=== PATIENT | male | born 1950 | race Caucasian/White ===

== ENCOUNTER 2022-08-08 13:12 | Outpatient (CLI) | payer BC ==
[2022-08-08 14:15] LABS: Hemoglobin 14.3 g/dL (13.5-17.5); Mean Corpuscular HGB CONC 33.2 g/dL (32.0-36.0); Mean Corpuscular Hemoglobin 29.8 pg (27.0-33.0); Mean Corpuscular Volume 89.8 fl (81.2-95.1); Mean Platelet Volume 9.9 fl (7.4-10.4); Platelet Count 164 10x3/uL (150-450); RBC Distribution Width 15.9 % (11.5-14.5); White Blood Cell (WBC) Count 8.1 10x3/uL (3.5-10.5)
[2022-08-08 14:40] LABS: PTT 27.4 sec (22.0-33.0); Prothrombin Time 10.7 sec (9.5-12.1)
[2022-08-08 14:41] LABS: Anion Gap 13 mmol/L (10-20); BUN (Urea Nitrogen) 22 mg/dL (8.4-25.7); Calc. Creatinine Clearance 0 mL/min (70-130); Calcium 9.5 mg/dL (7.8-10.44); Carbon Dioxide 26 mmol/L (23-31); Chloride 106 mmol/L (98-107); Estimated GFR 96; Glucose 71 mg/dL (83-110); Sodium 141 mmol/L (136-145)
== END 2022-08-08 13:13 | disposition home or self-care (01) ==
LOC: CSHLAB 13:12
PROVIDERS: ATTEND Specialist
DX: Z01.818 Encounter for other preprocedural examination (principal); T81.30XA Disruption of wound, unspecified, initial encounter
CPT/HCPCS: 80048; 85027; 85610; 85730; 93005; 93010

== ENCOUNTER 2022-08-09 06:41 | Day surgery (SDC) | payer BC, MEDICARE ==
[2022-08-09] MEDS ORDERED: Gentamicin 80 MG/2 ML VIAL ONE (07:28)
[2022-08-09] MEDS ORDERED: Lidocaine 1% (PF) 30 ML VIAL ONE (07:28)
[2022-08-09] MEDS ORDERED: Sodium Chloride 0.9% 2,000 ML ONE (07:29)
[2022-08-09] MEDS ORDERED: Midazolam HCl 2 mg/2 ml Vial ONE ×2 (07:30→08:26)
[2022-08-09] MEDS ORDERED: Fentanyl 100 MCG/2 ML VIAL ONE (07:30)
[2022-08-09] MEDS ORDERED: Vancomycin HCl 500 MG VIAL ONE (07:35)
[2022-08-09] MEDS ORDERED: Zolpidem Tartrate 5 MG TAB PO PRN (08:55)
[2022-08-09] MEDS ORDERED: HYDROcodone/Acetaminophen 5/325 mg Tablet PO PRN ×2 (08:55)
[2022-08-09] MEDS ORDERED: Senokot S 8.6-50 MG TAB PO PRN (08:55)
[2022-08-09] MEDS ORDERED: Ondansetron ODT 4 MG TAB PO PRN (08:55)
[2022-08-09] MEDS ORDERED: Calcium Carbonate 500 MG ChewTAB PO PRN (08:55)
[2022-08-09] MEDS ORDERED: Loperamide HCl 2 MG CAP PO PRN (08:55)
[2022-08-09 09:14] VITALS: BMI 20.5
[2022-08-09] MEDS ORDERED: Meloxicam 7.5 MG TAB PO SCH (10:00)
[2022-08-09 11:47] VITALS: TEMP 98.6
[2022-08-09] MEDS: Vancomycin HCl 500 MG in Sodium Chloride 0.9% 100 ML IVPB SCH (20:13)
[2022-08-09 20:14] VITALS: BP 134/75
[2022-08-09] MEDS ORDERED: Amlodipine 5 MG TAB PO SCH (21:00)
[2022-08-09] MEDS ORDERED: CO Q-10 CAPSULE 50 MG PO SCH (21:00)
[2022-08-10 03:57] LABS: #Basophils 0.1 10x3/uL (0.0-0.2); #Eosinphils 0.2 10x3/uL (0.0-0.5); #Monocytes 0.6 10x3/uL (0.0-1.1); #Neutrophils 6.2 10x3/uL (1.5-8.4); %Basophils 0.9 % (0.0-2.0); %Eosinophils 2.1 % (0.0-6.0); %Lymphocytes 16.6 % (18.0-47.0); %Monocytes 7.4 % (0.0-10.0); %Neutrophils 72.6 % (40.0-75.0); Hemoglobin 13.1 g/dL (13.5-17.5); Mean Corpuscular HGB CONC 33.2 g/dL (32.0-36.0); Mean Corpuscular Hemoglobin 29.5 pg (27.0-33.0); Mean Corpuscular Volume 88.7 fl (81.2-95.1); Mean Platelet Volume 9.6 fl (7.4-10.4); Platelet Count 148 10x3/uL (150-450); RBC Distribution Width 15.9 % (11.5-14.5); Red Blood Cell (RBC) Count 4.44 10x6/uL (4.32-5.72); White Blood Cell (WBC) Count 8.5 10x3/uL (3.5-10.5)
[2022-08-10] MEDS: Vancomycin HCl 500 MG in Sodium Chloride 0.9% 100 ML IVPB SCH (07:43)
[2022-08-10] MEDS ORDERED: Rosuvastatin 10 MG TAB PO SCH (09:00)
[2022-08-10] MEDS ORDERED: Meloxicam 7.5 MG TAB PO SCH (09:00)
== END 2022-08-10 11:20 | disposition home or self-care (01) ==
LOC: CSHSDC 06:41 → CSHICU 09:41 → UNDOADMOB 09:41 → INTOOBSV 09:41 → CSHSDC 08-10 11:20 → UNDODISOB 08-10 11:20
PROVIDERS: ATTEND Specialist
PROC: 0JPT3PZ Removal of Cardiac Rhythm Related Device from Trunk Subcutaneous Tissue and Fascia, Percutaneous Approach (ICD-10-PCS; principal; 2022-08-09)
DX: T81.30XA Disruption of wound, unspecified, initial encounter (principal); I49.5 Sick sinus syndrome; I10 Essential (primary) hypertension; I48.91 Unspecified atrial fibrillation; E78.5 Hyperlipidemia, unspecified; Z88.0 Allergy status to penicillin; Z88.1 Allergy status to other antibiotic agents; Z88.2 Allergy status to sulfonamides; Z79.01 Long term (current) use of anticoagulants; Z79.899 Other long term (current) drug therapy; Y83.1 Surgical operation with implant of artificial internal device as the cause of abnormal reaction of the patient, or of later complication, without mention of misadventure at the time of the procedure
CPT/HCPCS: 33235; 33241; 36415; 85025; 87070; 87205; 88300; 99152; 99153; J1580; J2001; J2250; J3010; J3370; J3490; J7050

== ENCOUNTER 2022-08-11 09:24 | Outpatient (CLI) | payer BC, MEDICARE | END 2022-08-11 09:25 | disposition home or self-care (01) | LOC: CSHWCC 09:24 | PROVIDERS: ATTEND Nurse Practitioner Family | DX: T81.89XD Other complications of procedures, not elsewhere classified, subsequent encounter (principal) ==

== ENCOUNTER 2022-08-17 11:26 | Outpatient (CLI) | payer BC | END 2022-08-17 11:27 | disposition home or self-care (01) | LOC: CSHWCC 11:26 | PROVIDERS: ATTEND Nurse Practitioner Family | DX: T81.89XD Other complications of procedures, not elsewhere classified, subsequent encounter (principal) | CPT/HCPCS: 97607 ==

== ENCOUNTER 2022-09-15 08:02 | Outpatient (CLI) | payer BC | END 2022-09-15 08:03 | disposition home or self-care (01) | LOC: CSHWCC 08:02 | PROVIDERS: ATTEND Nurse Practitioner Family | DX: T81.89XD Other complications of procedures, not elsewhere classified, subsequent encounter (principal) | CPT/HCPCS: 99212; G0463 ==